=== PATIENT | female | born 1990 | race Caucasian/White ===

== ENCOUNTER 2019-09-21 22:37 | Emergency (ER) | payer OTHER ==
[2019-09-21 23:18] VITALS: BP 122/88; TEMP 98.5; BMI 25.9
--- NOTE | 2019-09-21 23:19 | PDOC ---
Rapid Medical Evaluation Chief Complaint: Chest Pain Time Seen by Provider: 09/21/19 23:15 Medical Evaluation: Allergies Allergy/AdvReac Type Severity Reaction Status Date / Time No Known Allergies Allergy Verified 10/02/15 02:05 Vital Signs Temp Pulse Resp BP Pulse Ox 98.5 F 78 20 122/88 99 09/21/19 23:15 09/21/19 23:15 09/21/19 23:15 09/21/19 23:15 09/21/19 23:15 09/21/19 23:18 29 year old female c/o chest pain x2 days with shortness of breath nausea. reports feeling tightness to chest. patient reports having covid in june. denies recent contact. + OCP use PE; patient aletr ox3, breath sounds clear A: chest pain P: labs ekg 09/21/19 23:20 Discharge Disposition - Diagnosis Chest pain Qualifiers: Chest pain type: unspecified Qualified Code(s): R07.9 - Chest pain, unspecified - Referrals - Patient Instructions - Post Discharge Activity
[2019-09-22 00:07] LABS: BASO % 0.5 % (0-2.0); EOS % 1.6 % (0-4.5); HEMATOCRIT 43.6 % (32.4-45.2); HEMOGLOBIN 14.8 GM/dL (10.7-15.3); LYMPH % 37.3 % (8-40); MCH 32.9 pg (25.7-33.7); MEAN CELL VOLUME 96.6 fl (80-96); MEAN PLT VOLUME 9.8 fl (7.5-11.1); MONO % 6.9 % (3.8-10.2); NEUT % 53.7 % (42.8-82.8); PLATELET COUNT 222 K/MM3 (134-434); RBC 4.51 M/mm3 (3.60-5.2); RDW 12.3 % (11.6-15.6); WHITE BLOOD COUNT 6.3 K/mm3 (4.0-10.0)
[2019-09-22] MEDS ORDERED: SODIUM CHLORIDE 0.9% 500 ML INFUS.BAG IV ONE (00:24)
[2019-09-22] MEDS ORDERED: METOCLOPRAMIDE HCL INJECTION 10 MG/2 ML VIAL IVPB ONE (00:24)
[2019-09-22] MEDS ORDERED: ACETAMINOPHEN 1000 MG/100 ML VIAL (NON FORMULARY) IVPB ONE (00:24)
--- NOTE | 2019-09-22 00:24 | PDOC ---
History of Present Illness - General Chief Complaint: Chest Pain Stated Complaint: CHEST/BACK PRESSURE Time Seen by Provider: 09/21/19 23:15 - History of Present Illness Initial Comments: Lindsay Deleon is a 29 y/o female with PMH significant for COVID (june 2019), and PCOS (on OCPs) presenting today with chest and back tightness. Reports that this started yesterday. Denies pleuritic chest pain. Describes sensation as tightness . No radiation. Pain is non reproducible. Reports vertigo which she has experienced before. States that this is the first time she felt her chest like this. No shortness of breath. Denies fever/cough. Reports nausea without vomiting. No abd pain. No dysuria/diarrhea. No leg swelling. SocHx: never smoker Past History - Medical History Allergies/Adverse Reactions: Allergies Allergy/AdvReac Type Severity Reaction Status Date / Time No Known Allergies Allergy Verified 10/02/15 02:05 Home Medications: Ambulatory Orders NK [No Known Home Medication] 05/23/15 COPD: No - Psycho-Social/Smoking History Smoking History: Never smoked Have you smoked in the past 12 months: No - Substance Abuse Hx (Audit-C & DAST Scrn) How often the patient has a drink containing alcohol: Never Score: In Men: 4 or > Positive; In Women: 3 or > Positive: 0 Screen Result (Pos requires Nsg. Audit-10AR): Negative Review of Systems - Review of Systems Comments:: GENERAL/CONSTITUTIONAL: No fever or chills. No weakness._ HEAD, EYES, EARS, NOSE AND THROAT: No change in vision. No change in hearing. No sore throat._ CARDIOVASCULAR: Reports chest tightness. No shortness of breath_ RESPIRATORY: Denies cough, hemoptysis_ GASTROINTESTINAL: Reports nausea. No vomiting, diarrhea or constipation._ GENITOURINARY: No dysuria, frequency, or change in urination._ MUSCULOSKELETAL: No joint or muscle swelling or pain. No neck or back pain._ SKIN: No rash_ NEUROLOGIC: Reports vertigo. No headache, loss of consciousness, or change in strength/sensation._ ENDOCRINE: No increased thirst. No abnormal weight change_ HEMATOLOGIC/LYMPHATIC: No anemia, easy bleeding, or history of blood clots._ ALLERGIC/IMMUNOLOGIC: No hives or skin allergy._ *Physical Exam - Vital Signs Last Vital Signs Temp Pulse Resp BP Pulse Ox 98.5 F 78 20 122/88 99 09/21/19 23:15 09/21/19 23:15 09/21/19 23:15 09/21/19 23:15 09/22/19 00:00 - Physical Exam GENERAL: Awake, alert, and oriented to person/place/time, in no acute distress_ HEAD: No signs of trauma, normocephalic, atraumatic _ EYES: PERRLA, EOMI, sclera anicteric, conjunctiva clear_ ENT: Hearing grossly normal, nares patent, oropharynx clear without exudates. No uvular deviation. Moist mucosa_ NECK: Normal ROM, supple, no lymphadenopathy, JVD, or masses_ LUNGS: No distress, speaks in full sentences, clear to auscultation bilaterally _ HEART: Regular rate and rhythm, normal S1 and S2, no murmurs appreciated, peripheral pulses normal and equal bilaterally._ ABDOMEN: Soft, nontender, normoactive bowel sounds. No guarding, no rebound. No masses_ EXTREMITIES: Normal inspection, Normal range of motion, no edema. No clubbing or cyanosis_ NEUROLOGICAL: Cranial nerves II through XII grossly intact. Normal speech, normal gait, no focal sensorimotor deficits _ SKIN: Warm, Dry, normal turgor, no rashes or lesions noted_ ED Treatment Course - LABORATORY CBC & Chemistry Diagram: 09/21/19 23:51 09/21/19 23:51 Medical Decision Making - Medical Decision Making 29F hx of PCOS and covid, presenting today with chest tightness for two days. Cannot PERC out due to OCP use for PCOS. DDx includes r/o ACS vs r/o PE vs anxiety. -cbc, cmp -ekg, trop, cxr -coags -d dimer -tylenol -fluids -reglan 09/22/19 00:27 EKG shows 77 bpm, NSR with sinus arrhythmia, nml axis, no ST elevation, QTc 414, no prior for comparison. 09/22/19 02:03 Labs reviewed. Laboratory Last Values WBC 6.3 K/mm3 (4.0-10.0) 09/21/19 23:51 RBC 4.51 M/mm3 (3.60-5.2) 09/21/19 23:51 Hgb 14.8 GM/dL (10.7-15.3) 09/21/19 23:51 Hct 43.6 % (32.4-45.2) 09/21/19 23:51 MCV 96.6 fl (80-96) H 09/21/19 23:51 MCH 32.9 pg (25.7-33.7) 09/21/19 23:51 MCHC 34.0 g/dl (32.0-36.0) 09/21/19 23:51 RDW 12.3 % (11.6-15.6) 09/21/19 23:51 Plt Count 222 K/MM3 (134-434) 09/21/19 23:51 MPV 9.8 fl (7.5-11.1) 09/21/19 23:51 Absolute Neuts (auto) 3.4 K/mm3 (1.5-8.0) 09/21/19 23:51 Neutrophils % 53.7 % (42.8-82.8) 09/21/19 23:51 Lymphocytes % 37.3 % (8-40) 09/21/19 23:51 Monocytes % 6.9 % (3.8-10.2) 09/21/19 23:51 Eosinophils % 1.6 % (0-4.5) 09/21/19 23:51 Basophils % 0.5 % (0-2.0) 09/21/19 23:51 Nucleated RBC % 0 % (0-0) 09/21/19 23:51 PT with INR 11.50 SEC (9.7-13.0) 09/22/19 00:36 INR 0.97 (0.83-1.09) 09/22/19 00:36 PTT (Actin FS) 30.2 SECONDS (25.2-36.5) 09/22/19 00:36 D-Dimer < 215 ng/ml (0-500) 09/21/19 23:20 Sodium 139 mmol/L (136-145) 09/21/19 23:51 Potassium 4.1 mmol/L (3.5-5.1) 09/21/19 23:51 Chloride 106 mmol/L (98-107) 09/21/19 23:51 Carbon Dioxide 28 mmol/L (21-32) 09/21/19 23:51 Anion Gap 6 MMOL/L (8-16) L 09/21/19 23:51 BUN 6.9 mg/dL (7-18) L 09/21/19 23:51 Creatinine 0.7 mg/dL (0.55-1.3) 09/21/19 23:51 Est GFR (CKD-EPI)AfAm 134.75 09/21/19 23:51 Est GFR (CKD-EPI)NonAf 116.26 09/21/19 23:51 Random Glucose 102 mg/dL (74-106) 09/21/19 23:51 Calcium 8.9 mg/dL (8.5-10.1) 09/21/19 23:51 Magnesium 2.4 mg/dL (1.8-2.4) 09/21/19 23:51 Total Bilirubin 0.4 mg/dL (0.2-1) 09/21/19 23:51 AST 20 U/L (15-37) 09/21/19 23:51 ALT 32 U/L (13-61) 09/21/19 23:51 Alkaline Phosphatase 66 U/L (45-117) 09/21/19 23:51 Creatine Kinase 92 U/L (26-192) 09/21/19 23:51 Troponin I < 0.02 ng/ml (0.00-0.05) 09/21/19 23:51 Total Protein 7.6 g/dl (6.4-8.2) 09/21/19 23:51 Albumin 3.8 g/dl (3.4-5.0) 09/21/19 23:51 Serum , Qual Negative 09/21/19 23:51 09/22/19 02:31 CXR shows no acute intrathoracic pathology. Plan to d/c home with PCP f/u. All questions answered. Return precautions given. Pt verbalized understanding and agreement with plan. Discharge - Discharge Information Problems reviewed: Yes Clinical Impression/Diagnosis: Chest pain Qualifiers: Chest pain type: unspecified Qualified Code(s): R07.9 - Chest pain, unspecified Condition: Stable Disposition: HOME - Admission No - Follow up/Referral Referrals: Saurabh Watkins MD [Primary Care Provider] - - Patient Discharge Instructions Patient Printed Discharge Instructions: DI for Atypical Chest Pain Additional Instructions: Your lab work, EKG, and chest x-ray were all within normal limits. Please make a follow up appointment with your primary care doctor. Please take Tylenol as needed for your chest discomfort (follow instructions on the package). If you experience any new, worsening, or concerning symptoms, including worsening chest pain, difficulty breathing, dizziness, headache, leg swelling, or any other concerns, please return to the emergency room. - Post Discharge Activity
[2019-09-22 00:29] LABS: ALBUMIN 3.8 g/dl (3.4-5.0); ALK PHOS 66 U/L (45-117); ANION GAP 6 MMOL/L (8-16); BILIRUBIN,TOTAL 0.4 mg/dL (0.2-1); BLOOD UREA NITROGEN 6.9 mg/dL (7-18); CALCIUM 8.9 mg/dL (8.5-10.1); CHLORIDE 106 mmol/L (98-107); CO2 28 mmol/L (21-32); CREATININE 0.7 mg/dL (0.55-1.3); GLUCOSE,RANDOM 102 mg/dL (74-106); MAGNESIUM 2.4 mg/dL (1.8-2.4); POTASSIUM 4.1 mmol/L (3.5-5.1); SGOT/AST 20 U/L (15-37); SGPT/ALT 32 U/L (13-61); SODIUM 139 mmol/L (136-145); TOT PROT 7.6 g/dl (6.4-8.2)
[2019-09-22] MEDS ORDERED: METOCLOPRAMIDE HCL INJECTION 10 MG/2 ML VIAL ONE (00:57)
[2019-09-22] MEDS ORDERED: ACETAMINOPHEN INJECTION 100 ML IVPB ONE (00:58)
[2019-09-22 01:15] LABS: INR 0.97 (0.83-1.09); PROTHROMBIN TIME (PATIENT) 11.5 SEC (9.7-13.0)
[2019-09-22 01:18] LABS: ACTIVATED PTT 30.2 SECONDS (25.2-36.5)
--- NOTE | 2019-09-22 01:52 | PDOC ---
Documentation entered by Calos Dewitt SCRIBE, acting as scribe for Bella Paz MD. Bella Paz MD: This documentation has been prepared by the Cristi treadwell Xhesika, SCRIBE, under my direction and personally reviewed by me in its entirety. I confirm that the documentation accurately reflects all work, treatment, procedures, and medical decision making performed by me. Attending Attestation - Resident Resident Name: Dirk Madrigal - ED Attending Attestation I have performed the following: I have examined & evaluated the patient, The case was reviewed & discussed with the resident, I agree w/resident's findings & plan, Exceptions are as noted - HPI HPI: 09/22/19 00:39 The patient is a 29y/o female with a PMH of COVID (june 2019), and PCOS (on OCPs) who presents to the ED with chest tightness since yesterday. Pt states her pain is non reproducible and non-radiating. The patient denies shortness of breath, headache and dizziness. Denies fever, chills, cough, nausea, vomiting, diarrhea and constipation. Denies dysuria, frequency, urgency and hematuria. Allergies: NKDA - Physicial Exam PE: 09/22/19 00:40 GENERAL: Awake, alert, and fully oriented, in no acute distress HEAD: No signs of trauma EYES: PERRLA, EOMI, sclera anicteric, conjunctiva clear ENT: Auricles normal inspection, hearing grossly normal, nares patent, oropharynx clear without exudates. Moist mucosa NECK: Normal ROM, supple, no lymphadenopathy, JVD, or masses LUNGS: Breath sounds equal, clear to auscultation bilaterally. No wheezes, and no crackles HEART: Regular rate and rhythm, normal S1 and S2, no murmurs, rubs or gallops ABDOMEN: Soft, nontender, normoactive bowel sounds. No guarding, no rebound. No masses EXTREMITIES: Normal range of motion, no edema. No clubbing or cyanosis. No cords, erythema, or tenderness NEUROLOGICAL: Cranial nerves II through XII grossly intact. SKIN: Warm, Dry, normal turgor, no rashes lesions noted. - Medical Decision Making 09/22/19 01:51 d dimer < 215 Troponin is negative CBC is unremarkable Chemistries are unremarkable 09/22/19 02:31 cxr napd plan d/c home Discharge - Discharge Information Problems reviewed: Yes Clinical Impression/Diagnosis: Chest pain Qualifiers: Chest pain type: unspecified Qualified Code(s): R07.9 - Chest pain, unspecified Condition: Stable Disposition: HOME - Follow up/Referral Referrals: Saurabh Watkins MD [Primary Care Provider] - - Patient Discharge Instructions Patient Printed Discharge Instructions: DI for Atypical Chest Pain Additional Instructions: Your lab work, EKG, and chest x-ray were all within normal limits. Please make a follow up appointment with your primary care doctor. Please take Tylenol as needed for your chest discomfort (follow instructions on the package). If you experience any new, worsening, or concerning symptoms, including worsening chest pain, difficulty breathing, dizziness, headache, leg swelling, or any other concerns, please return to the emergency room. - Post Discharge Activity
[2019-09-22 02:35] VITALS: PULSE 85
--- NOTE | 2019-09-22 12:04 | EKG ---
Test Reason : Blood Pressure : / mmHG Vent. Rate : 077 BPM Atrial Rate : 077 BPM P-R Int : 162 ms QRS Dur : 068 ms QT Int : 366 ms P-R-T Axes : 057 052 039 degrees QTc Int : 414 ms NORMAL SINUS RHYTHM WITH SINUS ARRHYTHMIA POSSIBLE LEFT ATRIAL ENLARGEMENT BORDERLINE ECG NO PREVIOUS ECGS AVAILABLE Confirmed by MD Loco, Prabhu ([id number]) on 09/22/2019 12:04:19 PM Referred By: Confirmed By:Prabhu Adan MD
== END 2019-09-22 02:46 | disposition home or self-care (01) ==
LOC: JER 22:37
PROC: 3E033GC Introduction of Other Therapeutic Substance into Peripheral Vein, Percutaneous Approach (ICD-10-PCS; principal; 2019-09-22)
DX: R07.9 Chest pain, unspecified (principal)
CPT/HCPCS: 36415; 71045-TC-FY; 80053; 82550; 83735; 84484; 84703; 85025; 85379; 85610; 85730; 93005; 93010; 99285-25; J0131

== ENCOUNTER 2022-12-26 20:03 | Emergency (ER) | payer OTHER ==
[2022-12-26 20:09] VITALS: PULSE 93; TEMP 97.5
[2022-12-26] MEDS ORDERED: ALBUTEROL SO4 2.5/IPRATROPIUM 0.5 INH SOL 3 ML VIAL.NEB. NEB ONE (20:15)
[2022-12-26 21:06] LABS: BASO % 0.4 % (0-2.0); EOS % 1.5 % (0-4.5); HEMATOCRIT 41.9 % (32.4-45.2); HEMOGLOBIN 14.7 GM/dL (10.7-15.3); LYMPH % 32.6 % (8-40); MCHC 35.1 g/dl (32.0-36.0); MEAN PLT VOLUME 8.5 fl (7.5-11.1); MONO % 7.9 % (3.8-10.2); NEUT % 57.6 % (42.8-82.8); PLATELET COUNT 257 10^3/uL (134-434); WHITE BLOOD COUNT 8.1 K/mm3 (4.0-10.0)
[2022-12-26 21:14] LABS: INR 0.91 (0.83-1.09); PROTHROMBIN TIME (PATIENT) 10.6 SEC (9.7-13.0)
[2022-12-26 21:17] LABS: ACTIVATED PTT 29.2 SECONDS (25.2-36.5)
[2022-12-26 21:18] LABS: POTASSIUM 3.4 mmol/L (3.5-5.1)
[2022-12-26 21:20] LABS: ALBUMIN 3.2 g/dl (3.4-5.0); BLOOD UREA NITROGEN 7.8 mg/dL (7-18); MAGNESIUM 2.1 mg/dL (1.8-2.4)
[2022-12-26 21:23] LABS: CREATININE 0.9 mg/dL (0.55-1.3)
[2022-12-26 21:25] LABS: BILIRUBIN,TOTAL 0.3 mg/dL (0.2-1); TOT PROT 7.4 g/dl (6.4-8.2)
[2022-12-26 21:55] VITALS: BP 114/68; RESP 18
== END 2022-12-26 22:09 | disposition home or self-care (01) ==
LOC: JER 20:03
DX: R00.2 Palpitations (principal); R06.02 Shortness of breath; R42 Dizziness and giddiness; R06.82 Tachypnea, not elsewhere classified; Z20.822 Contact with and (suspected) exposure to COVID-19
CPT/HCPCS: 0241U-QW; 36415; 71045-TC-FY; 80053; 83735; 84443; 84484; 84703; 85025; 85379; 85610; 85730; 93005; 93010; 99285-25

== ENCOUNTER 2023-12-13 17:47 | Emergency (ER) | payer OTHER ==
[2023-12-13 18:14] VITALS: BP 118/79; PULSE 87; RESP 18; TEMP 97.9; BMI 30.8
== END 2023-12-13 21:04 | disposition left against medical advice (07) ==
LOC: JER 17:47
DX: R07.89 Other chest pain (principal); H57.12 Ocular pain, left eye
CPT/HCPCS: 70450-TC; 72125-TC; 93005; 93010; 99284-25